=== PATIENT | male | born 1995 | race Caucasian/White ===

== ENCOUNTER 2023-05-06 15:08 | Emergency (ER) | payer OTHER ==
[~2023-05-06] VITALS: Ht 182.9 cm; Wt 88.5 kg
[2023-05-06 15:34] VITALS: BP 133/90
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
== END 2023-05-06 17:35 | disposition home or self-care (01) ==
LOC: ER 15:08
DX: T16.2XXA Foreign body in left ear, initial encounter (principal); Z90.89 Acquired absence of other organs; X58.XXXA Exposure to other specified factors, initial encounter; Y93.89 Activity, other specified; Y92.89 Other specified places as the place of occurrence of the external cause; Y99.8 Other external cause status
CPT/HCPCS: 69200; 99284